=== PATIENT | male | born 1935 | race Hispanic/Latino ===

== ENCOUNTER 2019-06-05 12:51 | Inpatient (IN) | payer MEDICARE ==
--- NOTE | 2019-06-05 15:24 | ULT ---
Right upper quadrant ultrasound: HISTORY: Right upper quadrant pain for 3 weeks FINDINGS: Fairly extensive ascites noted. At least one gallstone noted in the neck of the gallbladder without p ericholecystic fluid or evidence for wall edema. Common bile duct is 0.7 cm. Liver echogenicity is somewhat coarse with the left lobe being poorly seen. 2.5 x 3.7 cm right renal cyst. IMPRESSION: Fairly extensive ascites. Heterogeneous abnormal liver echogenicity in a borderline size liver. Lynn lithiasis. Common duct 0.7 cm. Right renal cyst.
[2019-06-05] MEDS ORDERED: Furosemide 40 MG/4 ML VIAL ONE (16:06)
--- NOTE | 2019-06-05 16:23 | RAD ---
Chest 2 views: HISTORY: Shortness of breath COMPARISON: 12/29/2008 FINDINGS: Evidence for a hiatal hernia. Patchy parenchymal changes in the right and left lower lung zones. Stab le metallic densities within the right chest. Stable catheter fragment overlying the right apex. Stable increased density at the right and left anterior rib costochondral junction regions. IMPRESSION: Mostly linear parenchymal changes in both lung bases, subsegmental atelectasis versus pneumonitis. Mo derate size hiatal hernia. Other chronic changes, stable.
[2019-06-05] MEDS ORDERED: Bisacodyl 5 MG TAB PO PRN (16:44)
[2019-06-05] MEDS ORDERED: Calcium Carbonate 500 MG ChewTAB PO PRN (16:44)
[2019-06-05] MEDS ORDERED: Ondansetron ODT 4 MG TAB PO PRN (16:44)
[2019-06-05] MEDS ORDERED: HYDROcodone/Acetaminophen 5/325 mg Tablet PO PRN (16:44)
[2019-06-05] MEDS ORDERED: Ondansetron PF 4 MG/2 ML Vial IVP PRN (16:44)
[2019-06-05] MEDS ORDERED: Senokot S 8.6-50 MG TAB PO PRN (16:44)
[2019-06-05] MEDS ORDERED: Acetaminophen 325 MG TAB PO PRN (16:44)
[2019-06-05] MEDS ORDERED: HYDROcodone/Acetaminophen 7.5/325 mg Tablet PO PRN (16:44)
[2019-06-05] MEDS ORDERED: diphenhydrAMINE 25 MG CAP PO PRN (16:49)
[2019-06-05] MEDS ORDERED: hydrALAZINE 20 MG/ML VIAL SLOW IVP PRN (16:49)
[2019-06-05] MEDS ORDERED: Docusate 100 MG CAP PO PRN (16:50)
[2019-06-05 17:39] LABS: Hemoglobin 12.5 g/dL (14.0-18.0); Red Blood Cell (RBC) Count 3.74 mill/uL (4.70-6.10); White Blood Cell (WBC) Count 8.4 thou/uL (4.8-10.8)
[2019-06-05 17:43] LABS: #Basophils 0.1 thou/uL (0.0-0.2); #Eosinphils 0.2 thou/uL (0.0-0.7); #Lymphocytes 2.2 thou/uL (1.20-3.40); #Monocytes 0.8 thou/uL (0.11-0.59); #Neutrophils 5.2 thou/uL (1.40-6.50); %Basophils 0.9 % (0.0-1.0); %Eosinophils 2.1 % (0.0-10.0); %Lymphocytes 25.8 % (21.0-51.0); %Monocytes 9.4 % (0.0-10.0); %Neutrophils 61.7 % (42.0-75.0); Mean Corpuscular HGB CONC 31.9 g/dL (32.0-36.0); Mean Corpuscular Hemoglobin 33.4 pg (27.0-31.0); Mean Platelet Volume 7.1 fL (7.4-10.4); Platelet Count 286 thou/uL (130-400); RBC Distribution Width 14.2 % (11.5-14.5)
[2019-06-05 17:53] LABS: Anion Gap 13 mmol/L (10-20); BUN (Urea Nitrogen) 13 mg/dL (8.4-25.7); Calc. Creatinine Clearance 0 mL/min (70-130); Calcium 8.7 mg/dL (7.8-10.44); Carbon Dioxide 22 mmol/L (23-31); Chloride 101 mmol/L (98-107); Estimated GFR-MDRD Greater than 90; Glucose 86 mg/dL (83-110); Potassium 3.7 mmol/L (3.5-5.1); Sodium 132 mmol/L (136-145)
[2019-06-05 17:57] LABS: Hypochromia SLIGHT = 6-15 cells (100X) (0-5/hpf); MDiff Complete? YES; Macrocytosis SLIGHT = 6-15 cells (100X) (0-5/hpf); Platelet Morphology Comment Appears Adequate; Polychromasia SLIGHT = 2-3 cells (100X) (0-2/hpf)
--- NOTE | 2019-06-05 19:56 | CT ---
CT ABDOMEN AND PELVIS WITHOUT IV CONTRAST: 06/05/19 HISTORY: Abdominal distention and pain. FINDINGS: Absence of IV contrast reduces the sensitivity of the exam particularly for evaluation of solid organ s. Oral contrast was administered. A moderate sized hiatal hernia is present. There are calcified granulomas in the spleen. A calcifie d gallstone is present. There is a large amount of free fluid in the abdomen and pelvis consistent wi th ascites. There are bilateral renal cysts. A nonobstructing left renal calculus is noted. No calculi is seen in the ureters or the urinary bladder. No hydroureteronephrosis noted on either side. There are vascular calcifications without evidence of aneurysmal dilatation of the abdominal aorta. T here are degenerative changes in the spine. The small bowel loops are not abnormally dilated. A birgit l appearing appendix is present. There are dependent changes in the lung bases. There is intrahepatic biliary ductal dilatation in the left lobe of the liver. IMPRESSION: 1. Ascites. 2. Moderate sized hiatal hernia. 3. Dilated intrahepatic biliary ducts. 4. Cholelithiasis. 5. Bilateral renal cysts. 6. Nonobstructing tiny left renal calculus. POS: [facility]
[2019-06-05] MEDS: Famotidine 20 MG TAB PO SCH (21:39)
[2019-06-05 22:02] LABS: #Eosinphils 0.1 thou/uL (0.0-0.7); #Lymphocytes 1.4 thou/uL (1.20-3.40); #Monocytes 0.6 thou/uL (0.11-0.59); #Neutrophils 5.5 thou/uL (1.40-6.50); %Basophils 0.6 % (0.0-1.0); %Eosinophils 1.8 % (0.0-10.0); %Lymphocytes 18.1 % (21.0-51.0); %Monocytes 8.1 % (0.0-10.0); %Neutrophils 71.3 % (42.0-75.0); Hemoglobin 12.2 g/dL (14.0-18.0); Mean Corpuscular HGB CONC 32.6 g/dL (32.0-36.0); Mean Corpuscular Hemoglobin 34.1 pg (27.0-31.0); Mean Platelet Volume 7.1 fL (7.4-10.4); Platelet Count 261 thou/uL (130-400); RBC Distribution Width 14.3 % (11.5-14.5); Red Blood Cell (RBC) Count 3.59 mill/uL (4.70-6.10); White Blood Cell (WBC) Count 7.8 thou/uL (4.8-10.8)
[2019-06-05 22:17] LABS: Anion Gap 13 mmol/L (10-20); BUN (Urea Nitrogen) 13 mg/dL (8.4-25.7); Calc. Creatinine Clearance 0 mL/min (70-130); Calcium 8.5 mg/dL (7.8-10.44); Carbon Dioxide 21 mmol/L (23-31); Chloride 101 mmol/L (98-107); Estimated GFR-MDRD Greater than 90; Glucose 107 mg/dL (83-110); Potassium 3.5 mmol/L (3.5-5.1); Sodium 131 mmol/L (136-145)
[2019-06-05 22:50] VITALS: BMI 25.3
[2019-06-05 23:17] LABS: HBSAg Index 0.19 S/CO (0-0.99); Hep B Surf Ag Non-Reactive S/CO (NonReactive); Hep C IgG Ab Non-Reactive (NonReactive); Hep C Index 0.14 S/CO (0-0.79)
[2019-06-05 23:18] LABS: Hep A IgM AB Non-Reactive (NonReactive)
[2019-06-05 23:20] LABS: HBCM Index 0.08 S/CO (0-0.79); Hepatitis B Core IgM Abs Non-Reactive (NonReactive)
--- NOTE | 2019-06-05 23:50 | HP ---
CHIEF COMPLAINT: Lower extremity edema. HISTORY OF PRESENT ILLNESS: Mr. Burton is a very pleasant 83-year-old gentleman with no known past medical history, who takes no medications, presents with lower extremity swelling. The patient was seen yesterday in his primary care physician's office for worsening lower extremity edema over the past 2 weeks. In the patient's primary care office, they were sent for laboratory data and when labs came back today, he was advised to go to the emergency department by primary care physician for elevated liver numbers. The patient with worsening abdominal distention over the past 2 weeks. The patient with crampy abdominal pain. The patient has been eating, drinking, and using the bathroom without difficulties. The patient has been having worsening lower extremity edema over the past 2 weeks and his skin is tight and becoming painful. I find the patient in the emergency department. He is sitting up in bed, in no apparent distress. The patient does have significant lower extremity edema. The patient with worsening abdominal distention and pain. The patient admitted to medical unit with telemetry for further evaluation. PAST MEDICAL HISTORY: 1. Prostate cancer status post radiation. 2. Degenerative disk disease. PAST SURGICAL HISTORY: Patient has had spinal surgery. MEDICATIONS: None. ALLERGIES: NO KNOWN DRUG ALLERGIES. SOCIAL HISTORY: The patient is retired, nondrinker, nonsmoker, who denies illicit drugs. LABORATORY DATA: BNP 123, lipase 23. RADIOGRAPHIC DATA: Chest x-ray; please see full report for details. Impression: 1. Mostly linear parenchymal changes in both lung bases, segmental atelectasis versus pneumonitis. 2. Moderate size hiatal hernia. Other chronic changes, stable. Abdominal ultrasound; please see full report for details. Impression: 1. Fairly extensive ascites. 2. Heterogeneous abnormality, abnormal liver echogenicity in a borderline-sized liver. 3. Cholelithiasis. 4. Common bile duct 0.7 cm. 5. Right renal cyst. PHYSICAL EXAMINATION: VITAL SIGNS: Blood pressure 123/78, heart rate 90, respirations 16, O2 saturation 96% on room air, temperature 98.8 degrees. GENERAL: The patient is in no apparent distress, answering questions appropriately, eating his lunch. HEENT: Head is normocephalic and atraumatic. Pupils are equally round and reactive to light and accommodation. There are no appreciated exudates or erythema on the tonsils. NECK: Supple and symmetrical. LUNGS: Clear to auscultation bilaterally without significant wheezes, rales, or rhonchi. CARDIAC: S1 and S2 present. Regular rate. No appreciated murmurs. No rubs or gallops. ABDOMEN: Severely distended and tight to palpation. There is minimal tenderness with deep palpation. There is no rebound, guarding, or rigidity. Bowel sounds are present. LOWER EXTREMITIES: The patient has 4+ pitting edema in bilateral lower extremities. There are no signs of erythema or cellulitic changes of the legs. SKIN: No rashes. No lesions. PSYCHIATRIC: The patient is alert and oriented x3 with fair insight to his clinical condition. The patient's mood and affect are appropriate for situation. ASSESSMENT AND PLAN: 1. Abdominal pain and distention. The patient with worsening abdominal pain and distention over the past 2 weeks. Ultrasound of the abdomen does demonstrate ascites. We will order a CT scan of the abdomen and pelvis to further evaluate. With patient's elevated liver function tests, a congestive hepatopathy from heart failure may be causing significant abdominal ascites. We will add acute hepatitis panel. Pending above workup, we will consider gastroenterology consultation. 2. Lower extremity edema. Ultrasound lower extremity to rule out deep vein thrombosis. With concerns for heart failure, the patient with significant lower extremity edema. 3. Shortness of breath; saturating well on room air. The patient with possible congestive heart failure. We will add echocardiogram. Consider Cardiology consultation. 4. History of prostate cancer status post radiation therapy. 5. Osteoarthritis. 6. Degenerative disk disease. Job ID: [id number]
[2019-06-06 06:11] LABS: ALT (SGPT) 73 U/L (8-55); AST (SGOT) 127 U/L (5-34); Albumin 2.6 g/dL (3.4-4.8); Alkaline Phosphatase 749 U/L (40-150); Bilirubin, Total 2.7 mg/dL (0.2-1.2); Protein, Total 5.8 g/dL (5.8-8.1)
--- NOTE | 2019-06-06 07:35 | ULT ---
EXAM: Bilateral lower extremity venous duplex ultrasound with color and spectral Doppler imaging: HISTORY: Bilateral lower extremity edema and swelling COMPARISON: None FINDINGS: Exam performed from the groin to the ankle including the visualized greater saphenous, common femoral , superficial femoral, profunda femoral, popliteal, trifurcation, and posterior tibial veins. There is phasic flow with normal compressibility and normal augmentation at all examined levels. No evidence for intraluminal thrombus. IMPRESSION: No evidence for deep venous thrombosis.
[2019-06-06] MEDS ORDERED: Furosemide 40 MG/4 ML VIAL SLOW IVP SCH (08:15)
[2019-06-06] MEDS ORDERED: Enoxaparin Sodium 40 MG/0.4 ML SYRINGE SC SCH (09:00)
[2019-06-06] MEDS: Famotidine 20 MG TAB PO SCH ×2 (09:26→20:37)
--- NOTE | 2019-06-06 10:45 | PDOC.HOSPP ---
- Subjective Subjective: Seen and examined. Patient feeling much better. Less LE edema. Less abdominal distention. Breathing well on room air. All questions answered in detail, patient happy with plan of care. - Objective Vital Signs & Weight: Vital Signs (12 hours) Temp Pulse Resp BP Pulse Ox 06/06/19 08:00 97.4 F L 63 18 128/66 99 06/06/19 04:15 98.1 F 65 14 131/66 98 06/05/19 23:55 97.7 F 82 16 136/70 95 Weight Weight 162 lb Result Diagrams: 06/05/19 21:51 06/05/19 21:51 Hospitalist ROS - Medication Medications: Active Medications Generic Name Dose Route Start Last Admin Trade Name Freq PRN Reason Stop Dose Admin Famotidine 20 mg 06/05/19 21:00 06/06/19 09:26 Pepcid PO 20 mg BID TENA Administration - Exam General Appearance: NAD, awake alert Eye: PERRL Eye - other findings: EOMI ENT: moist mucosa Neck: supple, no JVD Heart: no murmur, no gallops, no rubs Heart - other findings: S1 and S2 present Respiratory: CTAB, no wheezes, no rales, no ronchi Gastrointestinal: soft, non-tender, no guarding, no rigidity, distended Gastrointestinal - other findings: Less distention since yesterday Extremeties - other findings: +4 LE edema is improved since yesterday Skin: no lesions, no rashes Neurological: CN's grossly intact, no weakness, no focal deficits Musculoskeletal: normal tone, normal strength, no muscle wasting Psychiatric: normal affect, A&O x 3 Hosp A/P (1) Leg edema Code(s): R60.0 - LOCALIZED EDEMA Status: Acute (2) Ascites Code(s): R18.8 - OTHER ASCITES Status: Acute (3) Abdominal pain Code(s): R10.9 - UNSPECIFIED ABDOMINAL PAIN Status: Resolved (4) Shortness of breath Code(s): R06.02 - SHORTNESS OF BREATH Status: Resolved (5) Elevated LFTs Code(s): R94.5 - ABNORMAL RESULTS OF LIVER FUNCTION STUDIES Status: Acute (6) Hyperbilirubinemia Code(s): E80.6 - OTHER DISORDERS OF BILIRUBIN METABOLISM Status: Acute - Plan Plan: GI consultation, recommendations appreciated Cardiology consultation, recommendations appreciated GI: -Paracentesis, therapeutic and diagnostic, with fluid analysis to calculate SAAG , in addition to cytology -No clinical suspicion for spontaneous bacterial peritonitis, will hold ABX at this time -Negative viral hepatitis panel, have not evaluated for rare causes such as primary biliary cirrhosis or primary sclerosing cholangitis -Elevated LFTs and ascites may be secondary to congestive hepatopathy from CHF Cardiac: -Shortness of breath resolved -Echo pending -IV lasix, having good response -No prior Hx of CHF, though doesnt follow up regularly with doctors or take medications -No Hx of ND or orther acute cardiac events US LE negative for DVT CT abdomen noted, no obvious mass or obstruction to explain rapid development of asites GI and DVT PPX
[2019-06-06 10:57] LABS: INR-International Normal Ratio 1.1; PTT 33.1 SEC (22.9-36.1); Prothrombin Time 14.5 SEC (12.0-14.7)
[2019-06-06 11:10] LABS: Albumin 2.9 g/dL (3.4-4.8); Globulin 4.1 g/dL (2.4-3.5)
[2019-06-06] MEDS: Furosemide 40 MG/4 ML VIAL SLOW IVP SCH (14:30)
--- NOTE | 2019-06-06 19:54 | CON ---
DATE OF CONSULTATION: 06/06/2019 HISTORY OF PRESENT ILLNESS: The patient is an 83-year-old gentleman, who presented with lower extremity swelling. The patient has no previous cardiac history. He does have a history of prostate carcinoma. The patient noted recently having lower extremity swelling. He denied having any chest discomfort. The patient reports dyspnea with mild exertion. PAST MEDICAL HISTORY: Prostate carcinoma. PAST SURGICAL HISTORY: Spinal surgery. MEDICATIONS: None. ALLERGIES: NONE. MEDICATIONS: None. FAMILY HISTORY: No strong family history of coronary artery disease. REVIEW OF SYSTEMS: Ten-point system otherwise unremarkable. PHYSICAL EXAMINATION: GENERAL: This is a well-developed gentleman, in no acute distress. VITAL SIGNS: Blood pressure 130/66. NECK: Full. LUNGS: Clear to auscultation. HEART: Regular rate and rhythm. Normal S1 and S2. ABDOMEN: Distended. EXTREMITIES: Mild bilateral edema. VASCULAR: Radial pulses 2+. LABORATORY DATA: Sodium 131, potassium 3.5, chloride 101, bicarbonate 21, BUN 13, creatinine 0.7. His AST was 127, alkaline phos 749, albumin was 2.6. His white blood cell count 7.8, hemoglobin 12.2, hematocrit 37.5, and platelets 261. DIAGNOSTIC DATA: His chest x-ray revealed clear lung shields. EKG revealed normal sinus rhythm with poor R-wave progression. IMPRESSION: 1. Anasarca. 2. Hypoalbuminemia. 3. Elevated LFTs. 4. Abnormal EKG. PLAN: This gentleman presents with abdominal and lower extremity swelling. He has marked hypoalbuminemia. The patient's BNP level is only 124. There is no evidence of edema. I think it is unlikely this gentleman has congestive heart failure. An echocardiogram will be obtained. Further recommendation will follow. Job ID: [id number] [facility]
--- NOTE | 2019-06-07 02:53 | CON ---
DATE OF CONSULTATION: 06/06/2019 REASON FOR CONSULTATION: New onset ascites, abnormal LFTs. CONSULTING PROVIDER: Clark Le DO. HISTORY OF PRESENT ILLNESS: The patient is an 83-year-old male, with past medical history degenerative joint disease, and prostate cancer status post radiation years ago, presenting with increased lower extremity edema and increased abdominal distention. He states that he was in his usual state of health until approximately 2 weeks ago when he began to have increasing lower extremity edema that did not resolve with lying down. Shortly after the onset of his lower extremity edema, he also began to notice increased abdominal distention that has been progressively getting worse over the last 2 weeks as well. His noticed that his skin and his eyes looked a bit more jaundiced over this time period, although he could not see it himself. Otherwise, he states that he had been doing well with no stated complaints of nausea, vomiting, fevers, chills, abdominal pain, hematemesis, melena, hematochezia, dysphagia, odynophagia, or encephalopathy. Of note, the patient started on herbal supplement for his joints approximately 3 weeks ago prior to the onset of the above symptoms. Otherwise, he takes very few medications. REVIEW OF SYSTEMS: 10-category review of systems was obtained with all responses negative except for the pertinent positives as listed in HPI. PAST MEDICAL HISTORY: As per HPI. PAST SURGICAL HISTORY: Spinal surgery. FAMILY HISTORY: He has a sister diagnosed with an unknown cancer. SOCIAL HISTORY: Denies any tobacco, alcohol, or illicit drug use, but does have a prior history of drinking 4 to 5 beers every 3 to 4 days for a period of time of approximately 4 to 5 years. OUTPATIENT MEDICATIONS: Unknown herbal supplement. ALLERGIES: NO KNOWN DRUG ALLERGIES. PHYSICAL EXAMINATION: VITAL SIGNS: Temperature 97.2, pulse 71, blood pressure 141/74, respiratory rate 18, saturating 97% on room air. GENERAL: The patient was lying in bed, in no acute distress. Alert and oriented x4. NECK: Supple. HEENT: Mild scleral icterus noted. Normocephalic, atraumatic. CARDIOVASCULAR: Regular rate and rhythm with no discernible murmurs, gallops, or rubs. RESPIRATORY: Clear to auscultation bilaterally with no discernible wheezes or rales. ABDOMEN: Normoactive bowel sounds, soft, nontender. Moderate abdominal distention with tympany to percussion and positive shifting dullness EXTREMITIES: 1+/2+ bilateral lower extremity edema to below the knees. LABORATORY DATA: CBC with a white blood cell count of 7.8, hemoglobin 12.2, hematocrit 37.5, platelets 261. INR 1.1. Chemistry with a sodium of 131, potassium 3.5, chloride 101, CO2 of 21, BUN 13, creatinine 0.77, glucose 107. AST 127, ALT 73, alkaline phosphatase 749, total bilirubin 2.7, albumin 2.8, lipase 23. IMAGING DATA: Right upper quadrant ultrasound was obtained on June 05, 2019, which showed fairly extensive ascites as well as cholelithiasis without evidence of cholecystitis. Common bile duct was measured at probably 0.7 cm with the liver echogenicity being somewhat coarse, although the left lobe was poorly seen during this examination. A CT scan of the abdomen and pelvis was also obtained on June 05, 2019, although was a noncontrasted study. A moderate-sized hiatal hernia was seen along with calcified granulomas within the spleen. A large amount of ascites was seen also as well as intrahepatic biliary ductal dilatation in the left lobe of the liver. Otherwise, cholelithiasis was seen without evidence of cholecystitis. ASSESSMENT AND PLAN: The patient is an 83-year-old male, with past medical history of prostate cancer status post radiation therapy and degenerative joint disease, presenting with new-onset ascites and elevated liver function tests. Elevated liver function tests/ascites. The patient was in his usual state of health until approximately 2 weeks ago when he had acute onset of worsening lower extremity edema that was then followed by significant abdominal distention. On evaluation in the [facility] ER, he was noted to have a transaminitis that was mild to moderate in severity, although his alkaline phosphatase is significantly elevated concerning for a ductal problem within the liver itself or within bone or small intestine. At this time, given the worsening abdominal distention from ascites as well as his LFT pattern, it could be due to underlying liver pathology including cirrhosis of the liver, cholangiocarcinoma, hemochromatosis, alpha-1 antitrypsin deficiency or autoimmune hepatitis. The differential could also include hypothyroidism and congestive heart failure and possible renal dysfunction (although this is less likely given his current BUN and creatinine). RECOMMENDATIONS: 1. With any new onset ascites, a paracentesis is indicated with labs for cell count/cytology, culture, albumin and protein to further differentiate the cause of his ascites. 2. I would recommend a full liver workup given his elevated transaminases and possible underlying liver pathology. 3. We will obtain an alkaline phosphatase isoenzyme to further fractionate whether or not this is a liver versus a bone-type process. 4. Given his history of prostate cancer in the past, metastatic disease cannot be ruled out at this time, so I would obtain a PSA in addition to a contrasted MRI of the liver for possible underlying process/neoplastic process. We will continue to follow. Please call with any questions. Job ID: [id number]
[2019-06-07] MEDS: Furosemide 40 MG/4 ML VIAL SLOW IVP SCH (05:49)
[2019-06-07 07:13] LABS: #Eosinphils 0.2 thou/uL (0.0-0.7); #Lymphocytes 1.6 thou/uL (1.20-3.40); #Monocytes 0.7 thou/uL (0.11-0.59); #Neutrophils 4.7 thou/uL (1.40-6.50); %Basophils 0.6 % (0.0-1.0); %Eosinophils 2.7 % (0.0-10.0); %Monocytes 9.8 % (0.0-10.0); %Neutrophils 64.9 % (42.0-75.0); Hemoglobin 11.9 g/dL (14.0-18.0); Mean Corpuscular HGB CONC 32.9 g/dL (32.0-36.0); Mean Corpuscular Hemoglobin 34.1 pg (27.0-31.0); Mean Platelet Volume 7.2 fL (7.4-10.4); Platelet Count 271 thou/uL (130-400); RBC Distribution Width 14.4 % (11.5-14.5); Red Blood Cell (RBC) Count 3.48 mill/uL (4.70-6.10); White Blood Cell (WBC) Count 7.2 thou/uL (4.8-10.8)
[2019-06-07 07:43] LABS: Anion Gap 11 mmol/L (10-20); BUN (Urea Nitrogen) 14 mg/dL (8.4-25.7); Calc. Creatinine Clearance 76 mL/min (70-130); Calcium 8.6 mg/dL (7.8-10.44); Carbon Dioxide 25 mmol/L (23-31); Chloride 101 mmol/L (98-107); Estimated GFR-MDRD Greater than 90; Glucose 86 mg/dL (83-110); Potassium 3.4 mmol/L (3.5-5.1); Sodium 134 mmol/L (136-145)
[2019-06-07 07:55] LABS: Ferritin 92.75 ng/mL (22-322)
[2019-06-07 07:56] LABS: PSA-Symptomatic (DIAGNOSTIC) Less than 0.02 ng/mL (0-4.0)
[2019-06-07] MEDS: Famotidine 20 MG TAB PO SCH ×2 (10:17→21:02)
--- NOTE | 2019-06-07 10:34 | PDOC.HOSPP ---
- Subjective Subjective: Seen and examined. Less LE edema. Abdomen still very distended, though better since arrival. Patient in good spirits and happy with the improvement of swelling. No new complaints. - Objective Vital Signs & Weight: Vital Signs (12 hours) Temp Pulse Pulse Pulse Resp BP BP 06/07/19 08:40 67 74 126/65 136/61 06/07/19 03:32 97.9 F 71 18 BP Pulse Ox 06/07/19 08:40 06/07/19 03:32 133/67 997 H Weight Weight 162 lb Result Diagrams: 06/07/19 06:31 06/07/19 06:31 Hospitalist ROS - Medication Medications: Active Medications Generic Name Dose Route Start Last Admin Trade Name Freq PRN Reason Stop Dose Admin Bisacodyl 10 mg 06/05/19 16:44 06/06/19 23:05 Dulcolax PO 10 mg DAILYPRN PRN Administration Constipation Famotidine 20 mg 06/05/19 21:00 06/07/19 10:17 Pepcid PO 20 mg BID TENA Administration - Exam General Appearance: NAD, awake alert Eye: PERRL Eye - other findings: EOMI ENT: no oropharyngeal lesions, moist mucosa Neck: supple, no lymphadenopathy Heart: RRR, no murmur, no gallops, no rubs Respiratory: CTAB, no wheezes, no rales, no ronchi Gastrointestinal: soft, non-tender, non-distended, normal bowel sounds, no guarding, no rigidity Extremeties - other findings: +2 LE edema is improving significanlty since arrival Skin: no lesions, no rashes Neurological: CN's grossly intact, no weakness, no focal deficits Musculoskeletal: normal tone, normal strength Psychiatric: normal affect, A&O x 3 Hosp A/P (1) Leg edema Code(s): R60.0 - LOCALIZED EDEMA Status: Acute (2) Ascites Code(s): R18.8 - OTHER ASCITES Status: Acute (3) Abdominal pain Code(s): R10.9 - UNSPECIFIED ABDOMINAL PAIN Status: Resolved (4) Shortness of breath Code(s): R06.02 - SHORTNESS OF BREATH Status: Resolved (5) Elevated LFTs Code(s): R94.5 - ABNORMAL RESULTS OF LIVER FUNCTION STUDIES Status: Acute (6) Hyperbilirubinemia Code(s): E80.6 - OTHER DISORDERS OF BILIRUBIN METABOLISM Status: Acute - Plan Plan: GI consultation, recommendations appreciated Cardiology consultation, recommendations appreciated GI: -Paracentesis, therapeutic and diagnostic, with fluid analysis to calculate SAAG , in addition to cytology -No clinical suspicion for spontaneous bacterial peritonitis, will hold ABX at this time -Negative viral hepatitis panel -evaluating for rare causes such as primary biliary cirrhosis, primary sclerosing cholangitis, Alpha 1 antitripsin, hemochromotosis, autoimmune hep, etc -MRI abdomen to futher eval -About 3 weeks ago started an herbal supplement from [employer] that "cured joint pains, cleaned kidneys, and helps with everything" Cardiac: -Shortness of breath resolved -Echo with preserved EF, though no comment on diastolic dysfunction -IV lasix, having good response - hold with IV contrast with MRI -No Hx of PA or orther acute cardiac events US LE negative for DVT CT abdomen noted, no obvious mass or obstruction to explain rapid development of asites GI and DVT PPX
[2019-06-07] MEDS ORDERED: Sodium Bicarbonate 2.5 MEQ/5 ML VIAL ONE (13:00)
--- NOTE | 2019-06-07 14:47 | ULT ---
ULTRASOUND GUIDED PARACENTESIS: DATE: 06/07/2019. COMPARISON: None. HISTORY: Symptomatic ascites. FINDINGS: Informed consent obtained prior to the procedure. Preprocedural imaging demonstrates significant ascites within the abdomen/pelvis. Right lower quadra nt was prepped and draped in normal sterile fashion and anesthetized with 1% buffered Lidocaine. With direct sonographic guidance, a 5 [place] Yueh catheter is advanced into the free fluid in the rig ht lower quadrant and removal of stylette yields yellow void. 2.6 liters were removed. A sample was sent to the laboratory for diagnostic assessment. The patient tolerated the procedure well. IMPRESSION: Successful ultrasound-guided paracentesis yielding 2.6 liters of yellow fluid. POS: OFF
[2019-06-07 15:15] LABS: Fluid, Amylase 23 U/L (Not Available); Fluid, Glucose 103 mg/dL (Not Available); Fluid, Triglycerides 31 mg/dL (Not Available)
[2019-06-07 15:19] LABS: RBC Count-Automated (BF) 277 /cumm; WBC/Nucleated-Auto (BF) 213 uL
[2019-06-07 15:32] LABS: BF Color Yellow; Body Fluid Source Peritoneal Fluid; Clarity Hazy (Clear)
[2019-06-07 15:33] LABS: Tube # EDTA
[2019-06-07 15:36] LABS: BF Segmented Neutrophils 5 %; Cell Count Non Hematic 51 %; Lymphocytes 44 %
[2019-06-07 16:26] LABS: ANA Symphony (Qualitative) Negative (Negative); ANA Symphony (Quantitative) 0.3 Ratio (< 0.7 Negative); EliA Vaculitis New Method **** NEW METHOD ****; Mitochondrial Ab 0.8 U/mL (<4 Negative); dsDNA IgG Antibody 3.2 IU/mL (<10 Negative)
--- NOTE | 2019-06-07 19:41 | PRG ---
DATE OF SERVICE: 06/07/2019 REASON FOR CONSULTATION: New onset ascites, abnormal LFTs. SUBJECTIVE: The patient did well today with no acute events or problems overnight. He did undergo the paracentesis earlier today with approximately 2.6 L removed at that time. Since the paracentesis, the patient states that he is feeling much better, being able to breathe and move around much easier. Currently, he denies any nausea, vomiting, fevers, chills, abdominal pain, hematemesis, melena, hematochezia, dysphagia, odynophagia, or encephalopathy. OBJECTIVE: VITAL SIGNS: Temperature 97.5, pulse 67, blood pressure 126/65, respiratory rate 18, saturating 95% on room air. GENERAL: The patient was lying in bed, in no acute distress. Alert and oriented x4. CARDIOVASCULAR: Regular rate and rhythm. RESPIRATORY: Clear to auscultation bilaterally. ABDOMEN: Normoactive bowel sounds. Soft. Nontender. Moderate abdominal distention with positive shifting dullness. EXTREMITIES: 1+/2+ bilateral lower extremity edema to below the knees. LABORATORY DATA: CBC with a white blood cell count of 7.2, hemoglobin 11.9, hematocrit 36.1, platelets 271. Chemistry with a sodium of 134, potassium 3.4, chloride 101, CO2 of 25, BUN 14, creatinine 0.77, glucose 86, iron 26, TIBC 266, ferritin 92. Immunoglobulin profile showed a slight elevation in IgA at 723. Acute hepatitis panel was negative. Paracentesis fluid yielded 213 white blood cells with 5% segmented neutrophils. Paracentesis protein was 1.5 with normal amylase and triglycerides. IMAGING DATA: No current GI imaging is available for review. ASSESSMENT AND PLAN: The patient is an 83-year-old male with past medical history of prostate cancer, status post radiation therapy and degenerative joint disease, presenting with new onset ascites and elevated liver function tests. Elevated liver function tests/ascites: The patient initially presented with progressive onset of worsening lower extremity edema as well as abdominal distention. Initial evaluation at the [facility] yielded a mild elevation in his liver function tests, but with a significant elevation in his alkaline phosphatase. He underwent paracentesis on June 07, 2019, with labs not indicative of SBP and with a low fluid protein, most likely is not indicative of congestive heart failure or congestive hepatopathy either. He does have a mild spike in his IgA which could be indicative of autoimmune hepatitis with antismooth-muscle antibody pending at this time. Based on his current iron indices, it does not appear to be indicative of hemochromatosis nor does he have evidence of chronic viral hepatitis on serologies either. His prostate specific antigen is also normal, making metastatic spread of his prior prostate cancer much less likely at this time. At this time, the origin of his increased ascites is largely unknown with his SAAG pending at this time. RECOMMENDATIONS: 1. Would follow up on the full liver workup given his elevated transaminases and possible underlying liver pathology. 2. Would obtain a contrast MRI of the liver for possible underlying pathologic process or neoplastic process. 3. We will order a TSH for possible hypothyroidism contributing to his new onset ascites. 4. Once the patient undergoes the MRI tomorrow, if he does not have any further problems or complications during this hospitalization, could be discharged to home with close followup in the GI Clinic. We will continue to follow. Please call with any questions. Job ID: [id number]
[2019-06-08] MEDS: Famotidine 20 MG TAB PO SCH ×2 (11:22→21:06)
--- NOTE | 2019-06-08 12:35 | MRI ---
MRI OF THE ABDOMEN WITH AND WITHOUT CONTRAST: INDICATION: History of abdominal distention and abnormal LFTs. COMPARISON: Noncontrast CT of the abdomen and pelvis dated June 05, 2019 and a right upper quadrant ultrasound dated June 05, 2019. FINDINGS: There is a stellate region of T2 hyperintensity, T1 iso to hypointensity with restricted diffusion an d delayed contrast enhancement seen involving the central confluence of the intrahepatic biliary ductal dilatation suspicious for cholangiocarcinoma. There is prominent intrahepatic biliary dilatati on proximal to this region. This lesion is best seen on image 23 of series 3, image 19 of series 9, image 47 of series 5 and image 16 of series 2. This lesion is best seen on the postcontrast images on image 30 of series 1, 30 of series 2 and 28 of series 13 measuring approximately 2.9 cm. No pathologically enlarged lymph nodes are evident. There are bilateral renal cysts. Visualized pancr eas and spleen appear within normal limits. No drainable fluid collection is evident. There is mild ascites. There is susceptibility artifact from instrumentation involving L3-L5. There is levoscoliosi s of lumbar spine. IMPRESSION: 1. Stellate, delayed enhancing lesion involving the right hepatic lobe in the region of the confluenc e of the intrahepatic biliary ducts most suspicious for cholangiocarcinoma. 2. Mild ascites. 3. Small hiatal hernia. 4. Bilateral renal cysts. Transcribed Date/Time: 06/08/2019 1:31 PM
--- NOTE | 2019-06-08 14:28 | PDOC.HOSPP ---
- Subjective Subjective: Seen and examined. Patient feeling much better. Less abdominal distention. Paracentesis bandage clean and dry. LE edema significantly improved and nearly resolved. Discussed MRI results with patient, all questions answered. Requesting Oncology input. - Objective Vital Signs & Weight: Vital Signs (12 hours) Temp Pulse Resp BP Pulse Ox 06/08/19 11:36 98.6 F 71 18 137/69 96 06/08/19 07:50 97.5 F L 69 18 156/73 H 06/08/19 07:35 95 06/08/19 04:07 97 06/08/19 03:13 97.8 F 69 19 111/57 L 97 Weight Weight 162 lb I&O: 06/07/19 06/08/19 06/09/19 06:59 06:59 06:59 Intake Total 640 Output Total 1280 Balance -640 Result Diagrams: 06/07/19 06:31 06/07/19 06:31 Hospitalist ROS - Review of Systems All other systems reviewed; all pertinent +/- noted in HPI/Subj - Medication Medications: Active Medications Generic Name Dose Route Start Last Admin Trade Name Freq PRN Reason Stop Dose Admin Bisacodyl 10 mg 06/05/19 16:44 06/06/19 23:05 Dulcolax PO 10 mg DAILYPRN PRN Administration Constipation Famotidine 20 mg 06/05/19 21:00 06/08/19 11:22 Pepcid PO 20 mg BID TENA Administration - Exam General Appearance: awake alert Eye: PERRL, anicteric sclera Eye - other findings: EOMI ENT: normocephalic atraumatic, no oropharyngeal lesions, moist mucosa Neck: supple, symmetric, no lymphadenopathy Heart: RRR, no murmur, no gallops, no rubs Respiratory: CTAB, no wheezes, no rales, no ronchi Gastrointestinal: soft, non-tender, non-distended, normal bowel sounds, no guarding, no rigidity Extremities: 1+ LE edema Skin: no lesions, no rashes Neurological: CN's grossly intact, no weakness, no focal deficits Musculoskeletal: no muscle wasting Psychiatric: normal affect, A&O x 3 Hosp A/P (1) Leg edema Code(s): R60.0 - LOCALIZED EDEMA Status: Acute (2) Ascites Code(s): R18.8 - OTHER ASCITES Status: Acute (3) Abdominal pain Code(s): R10.9 - UNSPECIFIED ABDOMINAL PAIN Status: Resolved (4) Shortness of breath Code(s): R06.02 - SHORTNESS OF BREATH Status: Resolved (5) Elevated LFTs Code(s): R94.5 - ABNORMAL RESULTS OF LIVER FUNCTION STUDIES Status: Acute (6) Hyperbilirubinemia Code(s): E80.6 - OTHER DISORDERS OF BILIRUBIN METABOLISM Status: Acute - Plan Plan: Oncology consultation, recommendations appreciated GI consultation, recommendations appreciated Cardiology consultation, recommendations appreciated GI: -MRI abdomen concerning for cholangiocarcinoma with 2.9cm lesion, will request input from oncology -S/p Paracentesis 2.6L removed, therapeutic and diagnostic, SAAG consistent with portal HTN, in addition to cytology -No clinical suspicion for spontaneous bacterial peritonitis, will hold ABX at this time -Negative viral hepatitis panel -About 3 weeks ago started an herbal supplement from [place] that "cured joint pains, cleaned kidneys, and helps with everything" Cardiac: -Shortness of breath resolved -Echo with preserved EF, though no comment on diastolic dysfunction -IV lasix, having good response - hold with IV contrast with MRI -No Hx of [place] or orther acute cardiac events US LE negative for DVT CT abdomen noted GI and DVT PPX
--- NOTE | 2019-06-08 21:33 | PRG ---
DATE OF SERVICE: 06/08/2019 SUBJECTIVE: Mr. Burton feels better after paracentesis. He has no abdominal pain. No nausea or vomiting. No acute complaints. OBJECTIVE: VITAL SIGNS: Temperature 97.8, pulse 67, blood pressure 141/72. GENERAL: He is in no acute distress. Alert and oriented x3. LUNGS: Clear to auscultation bilaterally. HEART: Regular rate and rhythm without murmur. ABDOMEN: Soft, mildly distended. No tenderness or guarding and his bowel sounds are present. EXTREMITIES: No lower extremity edema. IMPRESSION: 1. Cholangiocarcinoma. MRI of the abdomen shows a stellate 2.9 cm mass in the right hepatic lobe causing dilation of the intrahepatic bile ducts. I will check a CA 19-9, CEA, and alpha fetoprotein. 2. Ascites status post paracentesis. The serum ascites albumin gradient shows a high gradient ascites, which is more consistent with portal hypertension than a neoplastic source. His platelets, however, are normal. RECOMMENDATIONS: 1. Check labs including CEA, CA 19-9, AFP, and trend the LFTs. 2. Oncology consultation. 3. Next step will likely involve referral to a tertiary center for ERCP with brushing and stenting. 4. He can likely discharge home tomorrow. Job ID: [id number]
[2019-06-09] MEDS: Famotidine 20 MG TAB PO SCH (09:09)
--- NOTE | 2019-06-09 09:24 | PQF ---
PAWAN NÚÑEZ ERIK [id number] [facility]-292 [id number] CLINICAL DOCUMENTATION IMPROVEMENT CLARIFICATION FORM: ICD-10 Updated PLEASE DO AN ADDENDUM TO THE PROGRESS NOTE WITH ANY DOCUMENTATION UPDATES OR ADDITIONS AND CARRY THROUGH TO DC SUMMARY. THANK YOU. DATE: 06/09, 06/10 ATTN: DR. LOVELY GREEN Please exercise your independent, professional judgment in responding to the clarification form. Clinical indicators are provided on the bottom of this form for your review. Please check appropriate box(s): [ XX ] Hyponatremia please specify etiology, if known ____Secondary to diuretic therapy with Lasix [ ] Hyponatremia due to SIADH (Syndrome of Inappropriate Secretion of Antidiuretic Hormone) [ ] Other diagnosis [ ] Unable to determine In addition, please specify: Present on Admission (POA): [ ] Yes [ ] No [ ] Unable to determine CLINICAL INDICATORS - SIGNS / SYMPTOMS / LABS SODIUM 132, 131, 134 (06/05 & 06/07 LAB RESULTS) RISKS: NEW ONSET ASCITES (H&P 06/05, PN 06/06-PRESENT) CHOLANGIOCARCINOMA (GI PN 06/08) TREATMENT: GI CONSULT (MD ORDER, 06/06) ONCOLOGY CONSULT (MD ORDER, 06/08) THANK YOU! Rama (This form is maintained as a part of the permanent medical record) 2014 [employer]. All Rights Reserved Rama Olivera RN, BSN [email or web address] Office: [phone] [facility]
[2019-06-09] MEDS ORDERED: Furosemide 40 MG TAB PO SCH (11:15)
[2019-06-09] MEDS ORDERED: Spironolactone 25 MG TAB PO SCH (11:15)
--- NOTE | 2019-06-09 15:04 | CON ---
DATE OF CONSULTATION: REASON FOR CONSULT: Hepatic lesion. HISTORY OF PRESENT ILLNESS: Mr. Burton is a pleasant 83-year-old gentleman with a remote history of prostate cancer, status post radiation, who was seen by his primary care for worsening lower extremity edema. He had elevated LFTs and was sent to the emergency room for evaluation. He underwent a CT scan of his abdomen and pelvis, which showed ascites and dilated intrahepatic biliary ducts. He underwent a paracentesis and then had an abdominal MRI that showed a stellate lesion involving the right hepatic lobe in the region of the intrahepatic biliary ducts. It was suspicious for cholangiocarcinoma. The patient's bilirubin is elevated at 2.7. He did have a CEA and PSA, both of which were normal. We were asked to see the patient for assistance with diagnosis. PAST MEDICAL HISTORY: 1. Prostate cancer, status post radiation. 2. Degenerative disk disease. PAST SURGICAL HISTORY: Spinal surgery. ALLERGIES: NO KNOWN DRUG ALLERGIES. HOME MEDICATIONS: None. FAMILY HISTORY: No history of liver cancer or cirrhosis. SOCIAL HISTORY: He is , has 2 children. He is active, lives with his spouse. No alcohol, tobacco, or illicit drug use. REVIEW OF SYSTEMS: A 10-point review of systems is negative except for noted in HPI. PHYSICAL EXAMINATION: VITAL SIGNS: Temperature is 97.7, pulse is 60, respiratory rate 14, blood pressure is 126/62. He is 94% on room air. GENERAL: This is a well-developed, well-nourished male, in no acute distress. HEENT: Normocephalic and atraumatic. Pupils are equal and reactive to light. NECK: Supple. CV: Regular rate and rhythm. LUNGS: Clear anterior. ABDOMEN: Slightly distended, but nontender. Bowel sounds are positive. EXTREMITIES: No clubbing, cyanosis, or edema. SKIN: No rash. HEMATOLOGIC: No petechiae or purpura. NEUROLOGIC: Nonfocal. PERTINENT LABS AND X-RAYS: Current WBCs are 7.2, hemoglobin 11.9, hematocrit 36.1, platelet count is 271,000. He has 65% neutrophils, 22% lymphocytes. PT is 14.5, INR is 1.1, and PTT is 33.1. Sodium 134, potassium 3.4, chloride 101, CO2 is 25, BUN is 14, creatinine 0.77, calcium is 8.6, iron is 26, TIBC is 266, ferritin is 92, bilirubin is 2.7, AST is 127, ALT is 73, alkaline phosphatase is 749. Serum total protein is 7, albumin 2.9, globulin 4.1. CEA is 3.84. PSA is less than 0.02. Hepatitis panel is negative. ASSESSMENT: 1. A 2.9 cm mass in the right hepatic lobe, worrisome for cholangiocarcinoma. 2. Ascites. DISCUSSION: The patient's CEA and PSA are normal. His CA-19-9 and AFP are currently pending. If his tumor markers are significantly elevated and diagnostic, no tissue would be needed. However, it is likely we will need a tissue biopsy. Agree with GI with transfer to a tertiary center for ERCP with biopsy and possible stenting. We will be happy to follow up in the clinic for treatment options, our clinic information was provided. Thank you for the consult. Job ID: [id number]
--- NOTE | 2019-06-09 16:46 | PDOC.HOSPP ---
- Subjective Subjective: Seen and examined. LE edema improving, nearly resolved. Abdomen is much less distended. Patient feeling much better and very happy with his care. No acute complaints or overnight events. - Objective Vital Signs & Weight: Vital Signs (12 hours) Temp Pulse Resp BP Pulse Ox 06/09/19 11:59 97.6 F 69 17 127/61 98 06/09/19 08:58 94 L 06/09/19 07:45 97.7 F 60 14 126/62 94 L Weight Weight 145 lb 14.4 oz I&O: 06/08/19 06/09/19 06/10/19 06:59 06:59 06:59 Intake Total 640 1160 740 Output Total 1280 2040 100 Balance -640 -880 640 Result Diagrams: 06/07/19 06:31 06/07/19 06:31 Radiology Reviewed by me: Yes (MRI abdomen) Hospitalist ROS - Review of Systems All other systems reviewed; all pertinent +/- noted in HPI/Subj - Medication Medications: Active Medications Generic Name Dose Route Start Last Admin Trade Name Freq PRN Reason Stop Dose Admin Bisacodyl 10 mg 06/05/19 16:44 06/06/19 23:05 Dulcolax PO 10 mg DAILYPRN PRN Administration Constipation Docusate Sodium 100 mg 06/05/19 16:50 06/08/19 21:12 Colace PO 100 mg BIDPRN PRN Administration Constipation Famotidine 20 mg 06/05/19 21:00 06/09/19 09:09 Pepcid PO 20 mg BID TENA Administration Senna/Docusate Sodium 2 tab 06/05/19 16:44 06/08/19 21:12 Senokot S PO 2 tab BID PRN Administration Constipation - Exam General Appearance: NAD, awake alert Eye: anicteric sclera Eye - other findings: EOMI ENT: normocephalic atraumatic Neck: supple, symmetric, no JVD Heart: RRR, no murmur, no gallops, normal peripheral pulses Respiratory: CTAB, no wheezes, no rales, no ronchi, normal chest expansion Gastrointestinal: soft, non-tender, no guarding, no rigidity, distended Extremities: 1+ LE edema Skin: no lesions, no rashes Neurological: CN's grossly intact, no weakness, no focal deficits Musculoskeletal: normal strength Psychiatric: normal affect, A&O x 3 Hosp A/P (1) Leg edema Code(s): R60.0 - LOCALIZED EDEMA Status: Acute (2) Ascites Code(s): R18.8 - OTHER ASCITES Status: Acute (3) Abdominal pain Code(s): R10.9 - UNSPECIFIED ABDOMINAL PAIN Status: Resolved (4) Shortness of breath Code(s): R06.02 - SHORTNESS OF BREATH Status: Resolved (5) Elevated LFTs Code(s): R94.5 - ABNORMAL RESULTS OF LIVER FUNCTION STUDIES Status: Acute (6) Hyperbilirubinemia Code(s): E80.6 - OTHER DISORDERS OF BILIRUBIN METABOLISM Status: Acute - Plan Plan: Oncology consultation, recommendations appreciated GI consultation, recommendations appreciated Cardiology consultation, recommendations appreciated GI: -Need appointment with GI in tertiary care center -MRI abdomen concerning for cholangiocarcinoma with 2.9cm lesion, will request input from oncology -S/p Paracentesis 2.6L removed, therapeutic and diagnostic, SAAG consistent with portal HTN -Cytology pending from paracentesis -No clinical suspicion for spontaneous bacterial peritonitis, will hold ABX at this time -Negative viral hepatitis panel -Negative tumor markers thus far Cardiac: -Shortness of breath resolved -Echo with preserved EF, though no comment on diastolic dysfunction -IV lasix, having good response - hold with IV contrast with MRI -No Hx of [place] or orther acute cardiac events US LE negative for DVT CT abdomen noted GI and DVT PPX
[2019-06-09 16:49] VITALS: BP 118/56; TEMP 97.5
--- NOTE | 2019-06-09 17:12 | PRG ---
DATE OF SERVICE: 06/09/2019 SUBJECTIVE: Mr. Burton has no complaints. His abdomen does not feel distended and he has no abdominal pain. No itching. OBJECTIVE: VITAL SIGNS: Temperature is 97.6, pulse 69, and blood pressure 127/61. GENERAL: He is in no acute distress. Alert and oriented x3. LUNGS: Clear to auscultation bilaterally. HEART: Regular rate and rhythm without murmur. ABDOMEN: Soft, nontender, and nondistended. Bowel sounds are present. EXTREMITIES: No lower extremity edema. LABORATORY DATA: CEA is 3.84 and PSA 0.02. IMPRESSION: 1. Cholangiocarcinoma. MRI shows a stellate lesion in the right hepatic lobe measuring around 2.9 cm that appears to be arising from the intrahepatic bile duct causing dilation of the intrahepatic ducts. The lesion is near the confluence of the bile ducts. The patient has associated elevation of bilirubin at 2.7 and alkaline phosphatase of 749. His CA-19-9 is pending. His alpha fetoprotein is pending. Next step will be endoscopic retrograde cholangiopancreatography with brushing of the bile duct and potentially stenting. Given the very proximal location of this lesion, this will require advanced ERCP endoscopist. I recommend a referral to [place] for that. After discussion with the patient, I have initiated a referral to Dr. Ernandez with [facility], who specializes in treatment of cholangiocarcinoma. The endoscopic interventions can be performed through [facility] at that point. 2. Ascites. The patient did present with new onset ascites. He does not have known cirrhosis preceding this hospitalization. His albumin is low at 2.9. Otherwise, there is no obvious stigmata of cirrhosis without nodularity of the liver noted by imaging. He has a normal platelet count at 271. The fluid studies did show a high gradient ascites with SAAG of 2. I do not believe cytology was sent with the paracentesis. RECOMMENDATIONS: We have initiated a referral to [facility] and they will call the patient with an appointment. We will fax all his records. The patient will be given an additional copy of his MRI. Job ID: [id number]
[2019-06-09 23:07] LABS: Alkaline Phosphastase Total 891 IU/L (39-117); Bone 32 % (12-68); Intestinal 5 % (0-18); Liver 63 % (13-88)
[2019-06-10] MEDS ORDERED: Furosemide 40 MG TAB PO SCH ×2 (07:30)
[2019-06-10] MEDS ORDERED: Spironolactone 25 MG TAB PO SCH ×2 (08:00)
--- NOTE | 2019-06-11 07:30 | PQF ---
[employer] Reports Winform ViewerPAWAN NÚÑEZ LOVELY GREEN [id number] [facility]292 [id number] CLINICAL DOCUMENTATION CLARIFICATION FORM: POST DISCHARGE Addendum to original discharge summary date: ____ Late entry note date: __ DATE: 06/11/2019 ATTN: LOVELY GREEN Please exercise your independent, professional judgment in responding to the clarification form. Clinical indicators are provided on the bottom of this form for your review Please check appropriate box(s): HEART FAILURE: A. TYPE: [ ] Systolic / HFrEF [ XX ] Diastolic / HFpEF [ ] Combined Systolic / Diastolic B. ACUITY [ XX ] Acute [ ] Acute on Chronic [ ] Chronic [ ] Other diagnosis [ ] Unable to determine In addition, please specify: Present on Admission (POA): [ XX ] Yes [ ] No [ ] Unable to determine For continuity of documentation, please document condition throughout progress notes and discharge summary. Thank You. CLINICAL INDICATORS - SIGNS / SYMPTOMS / LABS Ejection Fraction =_50-55 % - Echocardiogram Lower extremity edema - Documetned in H&P on 06/05 by LOVELY GREEN MD SOB - Documetned in H&P on 06/05 by LOVELY GREEN MD Pt possible CHF - Documetned in H&P on 06/05 by LOVELY GREEN MD BNP 123 - Documetned in H&P on 06/05 by LOVELY GREEN MD RISKS: Cholangiocarcinoma - Documented in hospital PNs on 06/09 by LOVELY GREEN Ascities - Documented in hospital PNs on 06/09 by LOVELY GREEN TREATMENTS: Cardiology consultation Echocardiogram chest xray IV lasix having good response - Documented in hospital PNs on 06/09 by LOVELY GREEN [employer] Win[employer] View[employer] (This form is maintained as a part of the permanent medical record) 2014 [employer]. All Rights Reserved [email or web address] [not provided] [email or web address]
--- NOTE | 2019-06-11 11:36 | DIS ---
DATE OF ADMISSION: 06/05/2019 DATE OF DISCHARGE: 06/09/2019 REASON FOR HOSPITALIZATION: Abdominal distention and lower extremity swelling. 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 PROCEDURES PERFORMED/TREATMENTS RENDERED: The patient was seen by Gastroenterology and Cardiology, please see full consultation and progress notes for details. The patient had echocardiogram, which demonstrated a preserved ejection fraction and no signs of heart failure to explain the patient's edema. The patient was seen by Gastroenterology and had MRI of the abdomen, please see full report for details, there were signs concerning for cholangiocarcinoma, which is a likely explanation for the patient's ascites and lower extremity edema. The patient did undergo paracentesis on 06/07/2019 in which 2.6 L of yellow fluid was removed. The patient tolerated the procedure well. The patient recommended safe for discharge by all specialists with close followup at tertiary care center [facility] for further evaluation and treatment. CONDITION ON DISCHARGE: Stable. SPECIFIC INSTRUCTIONS FOR THE PATIENT/FAMILY: 1. The patient is to take all medications as outlined, to be re-evaluated by primary care physician in the next 5 to 7 days. 2. The patient is recommended to follow up with [facility] for further evaluation and treatment of liver lesion. 3. The patient may require endoscopy with advanced ERCP procedure for definitive diagnosis and possible stenting. 4. The patient was recommended to return to acute care hospital immediately if signs or symptoms return, worsen, or any other new symptoms occur. DISCHARGE MEDICATIONS: 1. Furosemide 40 mg one tablet p.o. daily. 2. Spironolactone 25 mg one tablet p.o. daily. 3. Aspirin 81 mg one tablet p.o. daily. HOSPITAL COURSE: Mr. Monae is a very pleasant 83-year-old gentleman with no known past medical history who takes only an aspirin daily and is previously high functioning including mowing his lawn and performing all activities of daily living independently. The patient lives with his family and has high functioning baseline status. The patient with worsening lower extremity edema and abdominal distention over the past several weeks. The patient presented to [facility] on 06/05/2019 for further evaluation and treatment. With the patient's abdominal distention, a CT scan of the abdomen was performed, please see full report for details. No obvious liver masses or lesions could be identified. Gastroenterology consultation requested for further recommendations, please see full consultation and progress notes for details. Gastroenterology recommending paracentesis, which was performed on 06/07/2019, please see full operative report and all laboratory details for full details. The patient tolerated paracentesis well with 2.6 L of fluid removed. There were no signs for acute infection and ascites, and the patient did not require antibiotic therapy. 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 Gastroenterology recommending that the patient would need to follow up in the outpatient setting with Gastroenterology at a tertiary care center and definitive diagnosis would be confirmed with advanced ERCP with brushings and possible stenting. Gastroenterology recommending that the patient is safe for discharge home with followup at [facility] in the upcoming weeks. Referral process was coordinated with GI, nursing staff, and Case Management to help expedite this process. The patient with mild shortness of breath and there were initially concerns for congestive heart failure, echocardiogram was performed-please see full report for details. The patient with preserved ejection fraction and no heart failure, cardiology recommending no further acute inpatient treatment. The patient was seen by Oncology, please see full consultation notes for details. Oncology recommending definitive diagnosis with tissue sample in the outpatient setting prior to any administration of further treatment. The patient was discharged on 06/09/2019 in stable condition. The patient is recommended to take all medications as outlined, to be re-evaluated by primary care physician. The patient is recommended to follow up with Gastroenterology and Oncology in the outpatient settings for further evaluation and treatment. The patient is recommended to return to acute care hospital immediately if signs or symptoms return, worsen, or any other new symptoms occur. Greater than 39 minutes spent coordinating care and discharge process on this patient. Job ID: [id number]
== END 2019-06-09 18:43 | disposition home or self-care (01) | DRG 435 ==
LOC: ERS 12:51 → ERHOLD 16:49 → 2NO 20:30
PROVIDERS: ADMIT Internal Medicine; ATTEND Internal Medicine
PROC: 0W9G3ZZ Drainage of Peritoneal Cavity, Percutaneous Approach (ICD-10-PCS; principal; 2019-06-07)
DX: C22.1 Intrahepatic bile duct carcinoma (principal); I50.31 Acute diastolic (congestive) heart failure; R18.8 Other ascites; E87.1 Hypo-osmolality and hyponatremia; K76.6 Portal hypertension; N28.1 Cyst of kidney, acquired; M19.91 Primary osteoarthritis, unspecified site; E80.6 Other disorders of bilirubin metabolism; K44.9 Diaphragmatic hernia without obstruction or gangrene; Z98.890 Other specified postprocedural states; Z85.46 Personal history of malignant neoplasm of prostate
CPT/HCPCS: 36415; 49083; 71046; 74176; 74183; 76705; 80048; 80074; 80076; 82042; 82103; 82150; 82378; 82390; 82728; 82945; 83516; 83540; 83550; 83690; 83880; 84075; 84153; 84155; 84157; 84478; 85025; 85060; 85610; 85730; 86038; 86225; 86301; 87070; 87205; 89051; 93005; 93306; 93970; 96374; J1650; J1940

== ENCOUNTER 2019-08-24 13:37 | Emergency (ER) | payer MEDICARE, OTHER ==
[2019-08-24] MEDS ORDERED: Ondansetron PF 4 MG/2 ML Vial ONE (14:34)
[2019-08-24] MEDS ORDERED: Morphine 4 MG/ML VIAL ONE (14:36)
[2019-08-24 14:58] LABS: #Basophils 0.1 thou/uL (0.0-0.2); #Eosinphils 0.1 thou/uL (0.0-0.7); #Lymphocytes 1.6 thou/uL (1.20-3.40); #Monocytes 0.7 thou/uL (0.11-0.59); #Neutrophils 4.8 thou/uL (1.40-6.50); %Basophils 0.8 % (0.0-1.0); %Eosinophils 1.8 % (0.0-10.0); %Lymphocytes 21.9 % (21.0-51.0); %Monocytes 9.8 % (0.0-10.0); %Neutrophils 65.7 % (42.0-75.0); Hemoglobin 11.6 g/dL (14.0-18.0); Mean Corpuscular HGB CONC 32.8 g/dL (32.0-36.0); Mean Corpuscular Hemoglobin 33.2 pg (27.0-31.0); Mean Platelet Volume 6.9 fL (7.4-10.4); Platelet Count 204 thou/uL (130-400); RBC Distribution Width 14.5 % (11.5-14.5); Red Blood Cell (RBC) Count 3.51 mill/uL (4.70-6.10); White Blood Cell (WBC) Count 7.3 thou/uL (4.8-10.8)
[2019-08-24 15:03] LABS: INR-International Normal Ratio 1.1; PTT 28.7 SEC (22.9-36.1); Prothrombin Time 14.5 SEC (12.0-14.7)
[2019-08-24 15:22] LABS: ALT (SGPT) 41 U/L (8-55); AST (SGOT) 106 U/L (5-34); Albumin 2.5 g/dL (3.4-4.8); Alkaline Phosphatase 588 U/L (40-110); Anion Gap 8 mmol/L (10-20); BUN (Urea Nitrogen) 13 mg/dL (8.4-25.7); Bilirubin, Total 1.8 mg/dL (0.2-1.2); Calc. Creatinine Clearance 0 mL/min (70-130); Calcium 8.3 mg/dL (7.8-10.44); Carbon Dioxide 27 mmol/L (23-31); Chloride 105 mmol/L (98-107); Estimated GFR-MDRD Greater than 90; Glucose 90 mg/dL (83-110); Potassium 4.3 mmol/L (3.5-5.1); Protein, Total 6.5 g/dL (5.8-8.1); Sodium 136 mmol/L (136-145)
== END 2019-08-24 17:55 | disposition home or self-care (01) ==
LOC: ERS 13:37
DX: R18.0 Malignant ascites (principal)
CPT/HCPCS: 80053; 85025; 85610; 85730; 96374; 96375; J2270; J2405

== ENCOUNTER 2019-09-03 14:43 | Emergency (ER) | payer MEDICARE, OTHER ==
[2019-09-03 15:21] LABS: #Basophils 0.1 thou/uL (0.0-0.2); #Eosinphils 0.1 thou/uL (0.0-0.7); #Lymphocytes 1.3 thou/uL (1.20-3.40); #Monocytes 0.4 thou/uL (0.11-0.59); #Neutrophils 3.1 thou/uL (1.40-6.50); %Basophils 1.4 % (0.0-1.0); %Eosinophils 1.8 % (0.0-10.0); %Monocytes 8.2 % (0.0-10.0); %Neutrophils 62.6 % (42.0-75.0); Hemoglobin 12.3 g/dL (14.0-18.0); Mean Corpuscular HGB CONC 32.2 g/dL (32.0-36.0); Mean Corpuscular Hemoglobin 32.4 pg (27.0-31.0); Mean Platelet Volume 6.6 fL (7.4-10.4); Platelet Count 265 thou/uL (130-400); RBC Distribution Width 14.5 % (11.5-14.5); Red Blood Cell (RBC) Count 3.79 mill/uL (4.70-6.10); White Blood Cell (WBC) Count 4.9 thou/uL (4.8-10.8)
[2019-09-03 15:42] LABS: ALT (SGPT) 53 U/L (8-55); AST (SGOT) 119 U/L (5-34); Albumin 2.6 g/dL (3.4-4.8); Alkaline Phosphatase 631 U/L (40-110); Anion Gap 11 mmol/L (10-20); BUN (Urea Nitrogen) 16 mg/dL (8.4-25.7); Calc. Creatinine Clearance 0 mL/min (70-130); Calcium 8.5 mg/dL (7.8-10.44); Carbon Dioxide 25 mmol/L (23-31); Chloride 103 mmol/L (98-107); Estimated GFR-MDRD 85; Globulin 4.3 g/dL (2.4-3.5); Glucose 98 mg/dL (83-110); Lipase 16 U/L (8-78); Protein, Total 6.9 g/dL (5.8-8.1); Sodium 135 mmol/L (136-145)
[2019-09-03 16:16] LABS: INR-International Normal Ratio 1.1; Prothrombin Time 14.5 SEC (12.0-14.7)
[2019-09-03 16:17] LABS: PTT 29.4 SEC (22.9-36.1)
== END 2019-09-03 17:21 | disposition home or self-care (01) ==
LOC: ERS 14:43
DX: R18.0 Malignant ascites (principal); R17 Unspecified jaundice
CPT/HCPCS: 36415; 49083; 80053; 83690; 84484; 85025; 85610; 85730; 93005; 94760

== ENCOUNTER 2019-09-15 15:46 | Emergency (ER) | payer MEDICARE, OTHER ==
--- NOTE | 2019-09-15 16:00 | RAD ---
PORTABLE CHEST ONE VIEW: 09/15/2019 4:55 p.m. HISTORY: Abdominal distention and edema. FINDINGS: The heart size is normal. There is elevation of the right hemidiaphragm. The aorta is tortuous. No lo bar consolidation, pneumothoraces, javier pulmonary edema or large effusions are seen. Small effusions cannot be excluded. POS: [facility]
[2019-09-15 17:02] LABS: #Basophils 0.1 thou/uL (0.0-0.2); #Eosinphils 0.1 thou/uL (0.0-0.7); #Lymphocytes 1.3 thou/uL (1.20-3.40); #Monocytes 0.5 thou/uL (0.11-0.59); #Neutrophils 3.4 thou/uL (1.40-6.50); %Basophils 1.2 % (0.0-1.0); %Eosinophils 1.5 % (0.0-10.0); %Lymphocytes 24.6 % (21.0-51.0); %Monocytes 9.2 % (0.0-10.0); %Neutrophils 63.5 % (42.0-75.0); Hemoglobin 12.8 g/dL (14.0-18.0); Mean Corpuscular Hemoglobin 33.5 pg (27.0-31.0); Mean Platelet Volume 6.9 fL (7.4-10.4); Platelet Count 268 thou/uL (130-400); RBC Distribution Width 14.8 % (11.5-14.5); Red Blood Cell (RBC) Count 3.81 mill/uL (4.70-6.10); White Blood Cell (WBC) Count 5.3 thou/uL (4.8-10.8)
[2019-09-15 17:28] LABS: ALT (SGPT) 60 U/L (8-55); AST (SGOT) 121 U/L (5-34); Albumin 2.7 g/dL (3.4-4.8); Alkaline Phosphatase 797 U/L (40-110); Anion Gap 13 mmol/L (10-20); BUN (Urea Nitrogen) 18 mg/dL (8.4-25.7); Bilirubin, Total 2.5 mg/dL (0.2-1.2); CK (CPK) 41 U/L (30-200); Calc. Creatinine Clearance 0 mL/min (70-130); Calcium 8.4 mg/dL (7.8-10.44); Carbon Dioxide 24 mmol/L (23-31); Chloride 103 mmol/L (98-107); Estimated GFR-MDRD 79; Globulin 4.1 g/dL (2.4-3.5); Glucose 86 mg/dL (83-110); Protein, Total 6.8 g/dL (5.8-8.1); Sodium 136 mmol/L (136-145)
[2019-09-15] MEDS ORDERED: HYDROcodone/Acetaminophen 10/325 mg Tablet ONE (19:14)
== END 2019-09-15 20:10 | disposition home or self-care (01) ==
LOC: ERS 15:46
DX: R14.0 Abdominal distension (gaseous) (principal); R18.8 Other ascites; R06.00 Dyspnea, unspecified
CPT/HCPCS: 36415; 49083; 71045; 80053; 82550; 83880; 84484; 85025; 93005